=== PATIENT | male | born 1945 | race Caucasian/White ===

== ENCOUNTER 2021-06-13 09:52 | Observation (INO) | payer MEDICARE, OTHER, SELFPAY ==
--- NOTE | 2021-05-27 10:07 | EKG12_ITS ---
Test Reason : PRE OP Blood Pressure : / mmHG Vent. Rate : 077 BPM Atrial Rate : 077 BPM P-R Int : 134 ms QRS Dur : 078 ms QT Int : 364 ms P-R-T Axes : 027 006 -17 degrees QTc Int : 411 ms Sinus rhythm with Blocked Premature atrial complexes Voltage criteria for left ventricular hypertrophy Inferior infarct , age undetermined ,CAN NOT BE EXCLUDED NONSPECIFIC ST/TWAVE ABNORMALITY Abnormal ECG Confirmed by STUART WILD, CATARINO ([id number]), department editor MAGED ALMANZA ([id number]) on 05/28/2021 9:40:35 AM Referred By: Mark Fontenot Confirmed By:CATARINO DAVIDSON MD
[2021-06-13] VITALS (12 sets, daily range): BP systolic 127–175; BP diastolic 77–106; PULSE 74–102; RESP 14–18; TEMP 35.7–36.8; O2SAT 93–97; BMI 28.4
[2021-06-13] MEDS: Lactated Ringers 1,000 ML 30 ML IV ×2 (06:46→19:46)
[2021-06-13 07:01] LABS: Anion Gap 6 (5-15); BUN 20 mg/dL (7-18); BUN/Creat Ratio 16.7 RATIO (10-20); Calcium,Total 11.4 mg/dL (8.5-10.1); Chloride 110 mmol/L (98-107); EST Glomerular Filtration Rate 63 mL/min (>60); Est Glom Filt Rate - Afr Amer 76 mL/min (>60); Glucose 133 mg/dL (74-106); Potassium 4.3 mmol/L (3.5-5.1); Sodium Level 139 mmol/L (136-145)
[2021-06-13 07:08] LABS: PTHIN 177.6 pg/mL (18.4-80.1)
--- NOTE | 2021-06-13 07:30 | PARA_PTH ---
PATIENT: INDERJIT DURON LOC: MS3 U#:[id number] AGE/SX: 75/M ROOM: [facility] [place] RE06/13/[address]: Dr. Mark Fontenot MD : 1945 BED: 1 DIS: 06/14/2021 SPEC #: [id number] RECD: 06/13/21 08:44 STATUS: ISAURA REShelton #: [id number] DEACON: 06/13/21 07:[address]: Mark Fontenot DEPT: SURGICAL PATHOLOGY RECD BY: Barb Holm ENTERED: 06/13/21 09:09 SP TYPE: PARATHY OTHR DR: Dr. Mark Tobar MD Tissues: A - Parathyroid B - Thyroid gland, NOS Procedures: Frozen Section (charge) Surgery Specimen Level IV Surgery Specimen Level V HEADER OPERATION: Parathyroidectomy, frozen section PRE-OP DIAGNOSIS: Hyperparathyroidism, nontoxic goiter TISSUE SUBMITTED: A ? Parathyroid, FS, B ? Left thyroid lobe FROZEN SECTION DIAGNOSIS A. Parathyroid, biopsy: Parathyroid gland tissue, 2 gm. SJ:rg 06/13/2021 MICROSCOPIC DIAGNOSIS A. Parathyroid gland, parathyroidectomy: Parathyroid gland (2 gm). See comment. B. Left thyroid lobe, lobectomy: Multinodular goiter with a dominant nodule (2 cm in greatest dimension). See comment. SJ:rosalind 06/17/2021 COMMENT A. A small piece of unremarkable parathyroid tissue is also noted. The findings may represent parathyroid adenoma. B. 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 Case has been reviewed in consultation with Dr. España who concurs with the above diagnosis. IDC:AM MICROSCOPIC DESCRIPTION Slides are reviewed. GROSS DESCRIPTION A - Received fresh for frozen section diagnosis labeled with the patient's name is a specimen designated parathyroid. The specimen consists of a nodular piece of mackay-pink tissue weighing 2 gm and measuring 2.5 x 1.5 x 1 cm. The specimen is serially sectioned and reveals mackay-pink solid cut surfaces. A section is submitted for frozen section diagnosis. The entire specimen is submitted in two cassettes as follows: 1??frozen section, 2 - rest of the specimen. / DAMI:rosalind 06/13/2021 B - Received in fixative is one container labeled with the patient's name and designated left thyroid lobe. The specimen consists of a thyroid lobectomy specimen weighing 10.6 gm and measuring 4 x 3 x 2 cm. The specimen is inked as follows: posterior surface ? black, anterior surface ? blue. Serial sections reveal multinodular cut surfaces with a mackay, solid nodule in the lower portion of the lobe measuring 2 x 1.5 x 1.5 cm. The entire specimen is submitted in ten cassettes with 1 containing most superior portion and 20 containing most inferior portion. / DAMI:rosalind 06/16/2021 TC:1 CPT: 18680, 64284, 80614
[2021-06-13] MEDS: Lidocaine 1% /Epi 1:100 (50ml) 50 ML VIAL (07:50)
[2021-06-13 09:28] LABS: PTHIN 26.5 pg/mL (18.4-80.1)
--- NOTE | 2021-06-13 09:38 | PCM.OPRPT ---
Problems Associated Problem List Diagnoses (1) Hyperparathyroidism: (2) Thyroid nodule: Report of Operation Date of Procedure: 06/13/21 Pre-Operative Diagnosis: Hyperparathyroidism, suspicious left thyroid nodule Post-Operative Diagnosis: Same, 2 gm adenoma left Surgery/Procedure Performed:: Excision of left parathyroidectomy, left hemithyroidectomy Description of Surgical Findings:: Thai is a 75-year-old male referred by endocrinology for hyperparathyroidism with hypercalcemia and osteoporosis. Localization studies with sestamibi were none suggestive as to side however ultrasound did show a large irregular taller than wide left thyroid nodule suspicious which was considered for possible site of the adenoma. The patient was counseled regarding surgical expiration with removal of the parathyroid adenoma including the left thyroid lobe given the suspicious nodule and the possibility that this represented an intrathyroidal adenoma. The risks, alternatives, potential complications, and benefits were discussed at length and any questions answered to the patient and/or caregiver's satisfaction. Witnessed informed consent was obtained in the office, and the patient and/or caregiver was agreeable to proceed. Procedure went as follows: The patient was identified in the preoperative holding and brought to the operating room, placed under general anesthesia and intubated with a neuromonitoring tube. The grounding electrodes were then placed on the chest and confirmed to be operational in accordance with the casting and pasting supervisor's directions to allow for recurrent laryngeal nerve monitoring. The neck was then prepped and draped in usual sterile fashion and the planned skin incision was marked 2 finger breadths above the sternal notch with a marking pen. The incisional line was then injected with 1% lidocaine with 100,000 epinephrine for a total of 8 mL. After allowing for vasoconstriction, a 15 blade scalpel was used to make an incision 6 cm in length through the skin and subcutaneous tissues and platysma. A subplatysmal flap was then elevated superiorly and inferiorly to allow for placement of the self-retaining retractor. The strap muscles were then divided in the midline and beginning on the left side the thyroid lobe dissected in a sub-capsular fashion. There is noted to be a large irregular nodule in the inferior lobe. The inferior, middle, and superior thyroid vessels were individually clamped and ligated with a combination of 3-0 silk sutures and vascular clips. Deep to the superior aspect of the thyroid lobe there is noted to be a separate large parathyroid adenoma 2.5 x 1 x 1 cm which was then dissected free and sent for pathologic specimen confirming a 2 g parathyroid adenoma. Preoperative parathyroid hormone level was noted at 177.6 and repeat testing after removal of the adenoma revealed a PTH of 26.5 suggesting successful removal of a solitary adenoma. Given the worrisome appearance on ultrasound and clinically of the left thyroid lobe nodule lobectomy was then performed as had been previously discussed with the patient for evaluation of the suspicious thyroid nodule. The recurrent laryngeal nerve was also identified and followed to its nerve entry point and the thyroid gland dissected free of its attachments to the trachea at Broyle's ligament. This was then transected at the isthmus and sent for pathologic evaluation. The wound bed was then irrigated saline solution and examined for sites of bleeding. No significant bleeding was encountered and #7 flat drains were then placed into each tracheoesophageal groove and brought out through separate stab incisions in the neck and secured with 3-0 silk sutures. The strap muscles were then re-approximated in the midline with a running 3-0 Vicryl suture followed by interrupted 3-0 Vicryl sutures to close the platysma and subcutaneous tissues. A 5-0 Monocryl was then used to close the skin followed by Steri-Strips completing the procedure. The patient was then returned to anesthesia, revived and extubated having tolerated the procedure well. Surgeon: Mark Fontenot skidder lever operator: Jazmín Rhoades Type of Anesthesia: General Anesthesiologist: Mark Palencia Special Medications: none Specimen's removed: left parathyroid adenoma, left thyroid lobe Drains: #7 flat JUNE Estimated Blood Loss (mL): 50 mL Fluids Replaced: 1500 mL Grafts/Implants Used: none Complications none Admit VTE Documentation VTE Present on Admission: No VTE Mechan Device Prophylaxis: SCD's VTE Pharm Prophylaxis ordered?: No
--- NOTE | 2021-06-13 11:22 | PCS.PANDOC ---
PANDEMIC DOCUMENTATION INITIATED: Date: 01/06/2021 Time: 190
[2021-06-14 03:21] VITALS: BP 136/80; PULSE 73; RESP 16; TEMP 36.9; O2SAT 96
[2021-06-14] MEDS: Finasteride 5 MG Tablet PO (08:50)
[2021-06-14] MEDS: Lisinopril 10 MG Tablet PO (08:51)
[2021-06-14] MEDS: Cholecalciferol (VIT D3) 25 MCG TABLET (1,000 UNITS) 50 MCG PO (08:51)
--- NOTE | 2021-06-14 09:31 | PN.SURG_ITS ---
Subjective Subjective Patient reports he has done well overnight with mild discomfort in his anterior neck incisional site. He denies any perioral numbness or tingling. Objective Data Objective Data The patient is alert and cooperative at the bedside. Neck incision is clean dry and intact without any fluid collections. Drain output is serosanguineous with a total output of 40 mL overnight. He has some mild vocal hoarseness that clears with swallowing. She [place] sign is negative. Vital Signs: Vital Signs Temp Pulse Resp BP Pulse Ox 98.4 F 73 16 136/80 H 96 06/14/21 03:21 06/14/21 03:21 06/14/21 03:21 06/14/21 03:21 06/14/21 03:21 Oxygen Flow Rate (L/min) 2 Oxygen Delivery Method Room Air Weight: 80 kg Body Mass Index (BMI) 28.4 Intake & Output: Intake and Output for Last 24 Hours 06/12/21 06/13/21 06/14/21 23:59 23:59 23:59 Intake Total 1390 / 1390 800 / 800 Output Total 35 / 35 40 / 40 Balance 1355 / 1355 760 / 760 Lab / Micro Data Result Diagrams: 06/13/21 06:36 06/13/21 06:36 Micro: Microbiology 06/13/21 06:05 Interface Orders SARS-CoV-2 Antigen (Rapid) - Final 05/27/21 10:15 Interface Orders SARS-CoV-2 Antigen (Rapid) - Final Physical Exam Const alert and oriented x3 General Appearance: cooperative HEENT normocephalic, head/scalp atraumatic and hearing grossly normal bilaterally Eyes PERRL and EOMs intact bilaterally Neck full ROM Neck Narrative: Incision site clean dry and intact Chest Chest: abnormal inspection of the chest and symmetrical chest wall rise Resp normal respiratory effort and normal air movement Assessment & Plan Assessment/Plan (1) Hyperparathyroidism: PLAN: Patient is doing well postoperative day 1 status post excision of a large left parathyroid adenoma. Intraoperative parathyroid testing showed a decline from high to normal of his parathyroid hormone levels suggesting successful removal of a solitary parathyroid adenoma. He had also had a suspicious left inferior lobe thyroid nodule that was removed as a biopsy. Drain output has been serosanguineous overnight and the drain is removed at the bedside. We are awaiting his morning calcium level to ensure that this is not excessively low prior to discharge but if this is normal we will plan for d ischarge to home today. He will return to follow-up next week for wound check and review of his pathology findings. (2) Thyroid nodule:
--- NOTE | 2021-06-14 09:35 | PCM.DC ---
Discharge Instructions Diet Discharge Diet: No restrictions Activity Discharge Activity: Return to Normal Activity Dressing / Incision Call your doctor if your incision/area has: Sudden Increased Bleeding, Increased Pain/ Swelling and Foul Smelling Discharge Call your doctor if you observe: Fever of 101 or Higher Cleanse incision/area with: Soap & Water Follow Up Care Please Follow Up With: Mark Fontenot MD When: 1 week Test Results: Test results from this visit will be discussed in further detail at your follow-up appointment, if applicable. Discharge Plan Admission Admit Date/Time: 06/13/21 09:52 Primary Reason for Your Visit: hyperparathyroidism, suspicious tyroid nodule Attending Provider: Mark Fontenot Primary Care Provider: Mark Tobar Discharge Orders/Prescriptions Prescriptions: Continued zinc 50 mg Tablet 50 mg PO DAILY RF: 0 finasteride 5 mg Tablet 5 mg PO DAILY RF: 0 cholecalciferol (vitamin D3) [Vitamin D3] 50 mcg (2,000 unit) Capsule 50 mcg PO DAILY RF: 0 ASA-calcium qdxp-ihd-mjldfnbi 325 mg Tablet 650 tab PO DAILY RF: 0 lisinopril 10 mg tablet 10 mg PO DAILY RF: 0 Referrals / Follow Up: Mark Tobar MD [Primary Care Provider] - Disposition Disposition (needs filled in before D/C Order can be placed): Home, Self Care
[2021-06-14 09:41] VITALS: BP 137/92; PULSE 94; RESP 16; TEMP 36.7; O2SAT 94
[2021-06-14 09:46] LABS: Calcium,Total 9.8 mg/dL (8.5-10.1)
== END 2021-06-14 10:23 | disposition home or self-care (01) ==
LOC: SDC 10:42 → MS3 10:42
PROVIDERS: Admitting Provider Otolaryngology; Referring Provider Otolaryngology; Visit Provider Otolaryngology
PROC: (CPT 60500; principal; 2021-06-13 07:15)
DX: E21.3 Hyperparathyroidism, unspecified (principal); E04.1 Nontoxic single thyroid nodule; D34 Benign neoplasm of thyroid gland; M81.0 Age-related osteoporosis without current pathological fracture; I10 Essential (primary) hypertension; M19.90 Unspecified osteoarthritis, unspecified site; N42.9 Disorder of prostate, unspecified; M72.2 Plantar fascial fibromatosis; R25.2 Cramp and spasm; Z92.241 Personal history of systemic steroid therapy; M54.9 Dorsalgia, unspecified; K21.9 Gastro-esophageal reflux disease without esophagitis; Z79.899 Other long term (current) drug therapy
CPT/HCPCS: 60500; 60240; 36415; 80048; 82310; 83970; 87426; 88305; 88307; 88331; 93005; 99218; C9803; J7120; G0378; J0330; J2405

== ENCOUNTER 2021-06-19 12:19 | Outpatient (CLI) | payer MEDICARE, OTHER, SELFPAY ==
[2021-06-20 08:02] LABS: PTHIN 92.7 pg/mL (18.4-80.1)
[2021-06-23 21:44] LABS: Thyroglobulin Antibody 350.3 IU/mL (0.0-0.9); Thyroid Peroxidase AB 148 IU/mL (0-34)
== END 2021-06-19 23:59 | disposition short-term general hospital (02) ==
PROVIDERS: Referring Provider Otolaryngology; Visit Provider Otolaryngology
DX: E21.3 Hyperparathyroidism, unspecified (principal); E04.1 Nontoxic single thyroid nodule
CPT/HCPCS: 36415; 83970; 84443; 86376; 86800